=== PATIENT | female | born 1995 | race Caucasian/White ===

== ENCOUNTER 2018-09-04 18:10 | Emergency (ER) | payer MEDICAID ==
[~2018-09-04] VITALS: Ht 154.9 cm; Wt 51.0 kg
[2018-09-04] MEDS ORDERED: ibuprofen tablet 400 MG TABLET PO ONE (19:15)
[2018-09-04] MEDS ORDERED: acetaminophen 325mg tablet PO ONE (19:15)
[2018-09-04] MEDS ORDERED: IBUP-1984 PO (20:01)
[2018-09-04] MEDS ORDERED: AMOX-580 PO (20:01)
[2018-09-04] MEDS ORDERED: amox tr/potassium clavulanate 875/125mg TAB PO ONE (20:05)
[2018-09-04 20:08] VITALS: BP 127/82
== END 2018-09-04 20:16 | disposition home or self-care (01) ==
LOC: ER 18:10
DX: J32.0 Chronic maxillary sinusitis (principal); H66.91 Otitis media, unspecified, right ear
CPT/HCPCS: 99284

== ENCOUNTER 2021-12-29 18:44 | Emergency (ER) | payer MEDICAID ==
[~2021-12-29] VITALS: Ht 157.5 cm; Wt 54.5 kg
[2021-12-29] MEDS ORDERED: proCHLORperazine 10 MG/2 ml inj IV ONE (19:10)
[2021-12-29 19:26] LABS: URINE HCG NEGATIVE (NEG)
[2021-12-29 19:33] LABS: BASOPHILS # (AUTO) 0.1 X10'3 (0-0.2); BASOPHILS % (AUTO) 0.4 % (0-1); EOSINOPHILS # (AUTO) 0.1 X10'3 (0-0.9); HEMATOCRIT 34.6 % (35.0-45.0); HEMOGLOBIN 10.9 g/dl (12.0-16.0); LYMPHOCYTES # (AUTO) 4.2 X10'3 (1.1-4.8); MEAN CORPUSCULAR HEMOGLOBIN 19.2 PG (27.0-31.0); MEAN CORPUSCULAR HGB CONC 31.4 g/dL (33.0-36.5); MEAN CORPUSCULAR VOLUME 61.3 FL (78-98); MEAN PLATELET VOLUME 9.5 FL (7.4-10.4); MONOCYTES # (AUTO) 0.8 X10'3 (0-0.9); MONOCYTES % (AUTO) 6.4 % (2-12); NEUTROPHILS # (AUTO) 7.9 X10'3 (1.8-7.7); NEUTROPHILS % (AUTO) 60.2 % (42-75); PLATELET COUNT 259 X10'3 (140-440); RED BLOOD COUNT 5.65 X10'6 (4.20-5.60); RED CELL DISTRIBUTION WIDTH 18.7 % (11.5-14.5); WHITE BLOOD COUNT 13.2 X10'3 (4.5-11.0)
[2021-12-29 19:39] LABS: ALANINE AMINOTRANSFERASE 18 U/L (12-78); ALBUMIN 3.9 G/DL (3.4-5.0); ALBUMIN/GLOBULIN RATIO 1.1 (1.1-1.5); ALKALINE PHOSPHATASE 82 IU/L (46-116); ANION GAP 9 (8-16); ASPARTATE AMINO TRANSFERASE 14 U/L (10-37); BILIRUBIN,TOTAL 0.4 MG/DL (0.1-1.0); BLOOD UREA NITROGEN 14 MG/DL (7-18); BUN/CREATININE RATIO 17.1 (6.6-38.0); CALCIUM 7.9 MG/DL (8.5-10.1); CHLORIDE 108 MMOL/L (99-107); CREATININE 0.82 MG/DL (0.40-0.90); GLUCOSE 74 MG/DL (70-104); POTASSIUM 3.2 MMOL/L (3.5-5.1); SODIUM 139 MMOL/L (135-145); TOTAL CARBON DIOXIDE 22.1 MMOL/L (24-32); TOTAL PROTEIN 7.3 G/DL (6.4-8.2); eGFR 83 ML/MIN
[2021-12-29 19:39] LABS: URINE AMPHETAMINE SCREEN NEGATIVE (Neg); URINE BARBITUATE SCREEN NEGATIVE (Neg); URINE BENZODIAZEPINES SCREEN NEGATIVE (Neg); URINE CANNABINOID SCREEN NEGATIVE (Neg); URINE COCAINE SCREEN NEGATIVE (Neg); URINE METHADONE SCREEN NEGATIVE (Neg); URINE OPIATE SCREEN NEGATIVE (Neg); URINE PHENCYCLIDINE SCREEN NEGATIVE (Neg)
--- NOTE | 2021-12-29 19:39 | NUR ---
Per Poison control: Pt will need 6-8 hrs observation, monitoring for increased sedation, tachycardia with concern if HR [id number]
[2021-12-29] MEDS ORDERED: charcoal, activated 50 GM/240 ML bottle PO ONE (19:40)
[2021-12-29 19:47] LABS: CLARITY,URINE CLEAR (Clear); COLOR,URINE YELLOW (Yellow); GLUCOSE, URINE NEGATIVE (Neg); KETONES,URINE NEGATIVE (Neg); LEUKOCYTE ESTERASE ,URINE NEGATIVE (Neg); NITRITES, URINE NEGATIVE (Neg); OCCULT BLOOD,URINE NEGATIVE (Neg); PROTEIN,URINE NEGATIVE (Neg); UROBILINOGEN,URINE 0.2 E.U/dL (0.2-1.0)
[2021-12-29 19:48] LABS: ETHANOL 0.151 GM/DL (0.0-0.010)
[2021-12-29 19:50] LABS: UA COLLECTION TYPE CLN CATCH MIDSTREAM
--- NOTE | 2021-12-29 19:55 | NUR ---
continue with Poison control recommendations. Monitor for QT prolongation, if QT >550 enhance electrolytes to levels of K >4, Mg>2, and Ca>9. Ativan can be used for seizures and agitation. Acetominophen, and Salicylates levels should be tested for as well as a test.
[2021-12-29 20:01] LABS: ACETAMINOPHEN < 2.0 UG/ML (10-30)
[2021-12-29 20:16] LABS: ANISOCYTOSIS 2+; MICROCYTOSIS 2+; PLATELET ESTIMATE NORMAL
[2021-12-29 20:17] LABS: ELLIPTOCYTES 1+; TARGET CELLS 1+
[2021-12-29] MEDS ORDERED: potassium Cl 20 mEq SR tablet PO STA (22:24)
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
--- NOTE | 2021-12-30 02:04 | NUR ---
Pt appears to be sleeping.
--- NOTE | 2021-12-30 03:27 | NUR ---
Pt's IV has been D/C'd.
--- NOTE | 2021-12-30 05:04 | NUR ---
Pt up to the bathroom, back to bed resting.
[2021-12-30 05:07] VITALS: BP 113/70
--- NOTE | 2021-12-30 06:22 | NUR ---
Patient adjusting her position. No distress observed. Continue to monitor.
--- NOTE | 2021-12-30 08:11 | NUR ---
Patient sleeping. No distress observed. Continue to monitor.
--- NOTE | 2021-12-30 09:23 | NUR ---
Patient just drank her coffee for breakfast and didn't eat. No distress observed. Continue to monitor.
--- NOTE | 2021-12-30 10:16 | NUR ---
Angela SALDAÑA, evaluating patient. No distress observed. Continue to monitor.
== END 2021-12-30 13:28 | disposition home or self-care (01) ==
LOC: ER 18:45
DX: R45.851 Suicidal ideations (principal); Z20.822 Contact with and (suspected) exposure to COVID-19; R11.2 Nausea with vomiting, unspecified; T50.902A Poisoning by unspecified drugs, medicaments and biological substances, intentional self-harm, initial encounter; Y93.89 Activity, other specified
CPT/HCPCS: 36415; 80053; 80305; 80320; 80329; 81003; 81025; 84443; 85008; 85025; 87811; 93005; 96374; 99285; J0780

== ENCOUNTER 2024-08-25 15:50 | Emergency (ER) | payer MEDICAID ==
[~2024-08-25] VITALS: Ht 160 cm; Wt 63.3 kg
[2024-08-25] MEDS ORDERED: AMOX-117 PO (17:05)
[2024-08-25] MEDS: CefTRIAXone 1000mg IM Kit (w/lidocaine diluent) IM ONE (17:14)
[2024-08-25 17:23] VITALS: BP 128/64; PULSE 78; RESP 16; TEMP 98.3; O2SAT 98
== END 2024-08-25 17:25 | disposition home or self-care (01) ==
LOC: ER 15:51
DX: K04.7 Periapical abscess without sinus (principal)
CPT/HCPCS: 96372; 99283; J0696

== ENCOUNTER 2024-11-07 21:09 | Emergency (ER) | payer MEDICAID ==
[~2024-11-07] VITALS: Ht 157.5 cm; Wt 68.2 kg
[2024-11-07 21:13] VITALS: TEMP 98.1
--- NOTE | 2024-11-07 21:42 | Physician Documentation ---
History of Present Illness ~ Chief Complaint: Medical Clearance Stated Complaint: MED CLEARANCE Time Seen by MD: 21:26 OK to notify your PCP?: Yes Source: patient Mode of Arrival: POV Exam Limitations: no limitations HPI 28-year-old female brought in by our [employer] for medical clearance for the usp. At the usp she took a test and was positive. 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 She is , with 3 abortions. She has not had any care. Tetanus within 5 years?: Yes Medication Reconciliation Allergies: Coded Allergies: No Known Allergies (Unverified , 08/25/24) Past Medical History Past Medical History: No Pertinent History Past Surgical History: noncontributory Last Menstrual Period: Jul 11, 2024 Drug Use: none Lives with: Family Lives In: Home Physical Exam Vital Signs: Temperature: 98.1, Source: Oral, Heart Rate: 83, Respiratory Rate: 16, BP: 98/72, Pulse Oximetry: 100, Weight: 68.180 Oxygen Flow Rate: 0 Progress Results/Orders Reviewed/noted all lab results: Yes Results/Orders Orders - LEXIE VIDALES Abo/Rh (11/07/24 21:28) US OB (11/07/24 21:28) Us Ob Ltd (11/07/24 ) Cult Urine + [place] [address] (11/07/24 22:35) Completed Orders - LEXIE VIDALES Hcg Serum Qt (11/07/24 21:28) Cbc/Diff (11/07/24 21:28) CMP (11/07/24 21:28) Ua W/Microscopic, Cult If Ind (11/07/24 21:55) Vital Signs 11/07/24 11/07/24 11/07/24 21:13 22:00 23:00 Temp 98.1 Pulse 83 70 69 Resp 16 16 16 B/P (MAP) 98/72 110/64 (79) 110/64 (79) Pulse Ox 100 96 97 O2 Flow Rate 0 Laboratory Tests Test 11/07/24 21:55 11/07/24 22:07 Urine Specimen Description Non-specified Urine Color Yellow Urine Clarity Cloudy Urine pH 6.0 Urine Specific Ivins >=1.030 Urine Protein 30 H Urine Glucose (UA) Negative Urine Ketones >=80 Urine Occult Blood Negative Urine Nitrite Positive H Urine Bilirubin Small Urine Urobilinogen 2.0 H Urine Leukocyte Esterase Trace H Urine RBC 0-2 Urine WBC 20-30 H Urine Squamous Epithelial Cells Few Urine Bacteria 4+ Urine Culture Indicated Indicated Volume Urine Centrifuged 10 ml Urine Comment White Blood Count 8.7 Red Blood Count 5.26 Hemoglobin 9.6 L Hematocrit 30.7 L Mean Corpuscular Volume 58.3 L Mean Corpuscular Hemoglobin 18.3 L Mean Corpuscular Hemoglobin Concent 31.4 L Red Cell Distribution Width 18.0 H Platelet Count 196 Mean Platelet Volume 9.0 Neutrophils (%) (Auto) 75.5 H Lymphocytes (%) (Auto) 19.1 L Monocytes (%) (Auto) 4.5 Eosinophils (%) (Auto) 0.5 Basophils (%) (Auto) 0.4 Neutrophils # (Auto) 6.5 Lymphocytes # (Auto) 1.7 Monocytes # (Auto) 0.4 Eosinophils # (Auto) 0.0 Basophils # (Auto) 0.0 CBC Comment Platelet Estimate Normal Red Blood Cell Morphology Perf Basophilic Stippling Anisocytosis 1+ Microcytosis 2+ Sodium Level 138 Potassium Level 3.7 Chloride Level 105 Carbon Dioxide Level 24.0 Anion Gap 9 Blood Urea Nitrogen 7 Creatinine 0.61 Estimated GFR/1.73 m2 > 90 BUN/Creatinine Ratio 11.5 Glucose Level 69 L Calcium Level 8.8 Total Bilirubin 0.7 Aspartate Amino Transf (AST/SGOT) 9 L Alanine Aminotransferase (ALT/SGPT) 12 Alkaline Phosphatase 64 Total Protein 7.3 Albumin 3.4 Globulin 3.9 Albumin/Globulin Ratio 0.9 L HCG Beta Subunit [id number] Chemistry Comments Microbiology Date/Time Source Procedure Growth Status 11/07/24 22:35 Urine Nonspecified Urine Culture - Preliminary Culture received. Resulted EKG/XRAY/CT/US/VASC/MRI Ultrasound : Impression Bedside ultrasound performed in the ED by Dr. Sagastume and interpreted by Dr. Sagastume and myself. Shows positive movement and a regular heart rate of 162 beats per minute. Medical Decision Making Additional info obtained from: old records Findings Sayra is a 28-year-old female with no care who is and brought in by our PD for medical clearance for usp. Dr. Sagastume did a bedside ultrasound with positive movement and heart rate 162. CBC, CMP, ABO Rh, urinalysis and beta quant all ordered. Notified by RN that patient was released from custody by [employer] and ambulated out of ambulance [employer] [facility] to [facility]. She has decision-making capacity. Partial lab results have resulted, type still pending. Urinalysis shows that she has a urinary tract infection. I was unable to relay this to the patient prior to her eloping and was unable to order any medications to her pharmacy of choice as it is not known at this time. I filled out an action form for tomorrow the day shift charge nurse can contact the patient, find out her preferred pharmacy and I wrote a written order for Macrobid 100 mg twice daily for 10 days for her UTI. Departure Disposition: 07 LEFT AWOL/ELOPED Impression: Primary Impression: Additional Impression: UTI (urinary tract infection) during Referrals: NO PRIMARY CARE PROVIDER (PCP) Signature Scribe Signature: . Attestation: Scribed for Lexie Vidalesp by Lexie Jeffers NP . 11/08/24 00:08 LEXIE VIDALES November 07, 2024 21:42
[2024-11-07 22:25] LABS: BASOPHILS % (AUTO) 0.4 % (0-1); EOSINOPHILS % (AUTO) 0.5 % (0-6); HEMATOCRIT 30.7 % (35.0-45.0); HEMOGLOBIN 9.6 g/dl (12.0-16.0); LYMPHOCYTES # (AUTO) 1.7 X10'3 (1.1-4.8); LYMPHOCYTES % (AUTO) 19.1 % (21-51); MEAN CORPUSCULAR HEMOGLOBIN 18.3 PG (27.0-31.0); MEAN CORPUSCULAR HGB CONC 31.4 g/dL (33.0-36.5); MEAN CORPUSCULAR VOLUME 58.3 FL (78-98); MONOCYTES # (AUTO) 0.4 X10'3 (0-0.9); MONOCYTES % (AUTO) 4.5 % (2-12); NEUTROPHILS # (AUTO) 6.5 X10'3 (1.8-7.7); NEUTROPHILS % (AUTO) 75.5 % (42-75); PLATELET COUNT 196 X10'3 (140-440); RED BLOOD COUNT 5.26 X10'6 (4.20-5.60); WHITE BLOOD COUNT 8.7 X10'3 (4.5-11.0)
[2024-11-07 22:34] LABS: BILIRUBIN,URINE SMALL (Neg); CLARITY,URINE CLOUDY (Clear); COLOR,URINE YELLOW (Yellow); GLUCOSE, URINE NEGATIVE (Neg); KETONES,URINE >=80 mg/dl (Neg); LEUKOCYTE ESTERASE ,URINE TRACE (Neg); NITRITES, URINE POSITIVE (Neg); OCCULT BLOOD,URINE NEGATIVE (Neg); PROTEIN,URINE 30 mg/dl (Neg)
[2024-11-07 22:35] LABS: UA COLLECTION TYPE NON-SPECIFIED
[2024-11-07 22:38] LABS: ALANINE AMINOTRANSFERASE 12 U/L (12-78); ALBUMIN 3.4 G/DL (3.4-5.0); ALBUMIN/GLOBULIN RATIO 0.9 (1.1-1.5); ALKALINE PHOSPHATASE 64 IU/L (46-116); ANION GAP 9 (8-16); ASPARTATE AMINO TRANSFERASE 9 U/L (10-37); BILIRUBIN,TOTAL 0.7 MG/DL (0.1-1.0); BLOOD UREA NITROGEN 7 MG/DL (7-18); BUN/CREATININE RATIO 11.5 (10.0-20.0); CALCIUM 8.8 MG/DL (8.5-10.1); CHLORIDE 105 MMOL/L (99-107); CREATININE 0.61 MG/DL (0.40-0.90); GLUCOSE 69 MG/DL (70-104); POTASSIUM 3.7 MMOL/L (3.5-5.1); SODIUM 138 MMOL/L (135-145); TOTAL PROTEIN 7.3 G/DL (6.4-8.2); eCRCL 107 ML/MIN; eGFR > 90 ML/MIN
[2024-11-07 22:58] LABS: RBC,URINE 0-2 /HPF (0-2); WBC,URINE 20-30 /HPF (0-4)
[2024-11-07 22:59] LABS: BACTERIA,URINE 4+ /HPF (Neg); SQUAMOUS EPITHELIAL CELL,UR FEW /LPF (FEW)
[2024-11-07 23:00] VITALS: BP 110/64; PULSE 69; RESP 16; O2SAT 97
[2024-11-07 23:05] LABS: BETA HCG,QUANTITATIVE 27002 mIU/ml
[2024-11-07 23:16] LABS: ANISOCYTOSIS 1+; MICROCYTOSIS 2+; PLATELET ESTIMATE NORMAL
== END 2024-11-07 23:30 | disposition left against medical advice (07) ==
LOC: ER 21:10
DX: O23.42 Unspecified infection of urinary tract in pregnancy, second trimester (principal); N39.0 Urinary tract infection, site not specified; Z3A.17 17 weeks gestation of pregnancy
CPT/HCPCS: 36415; 80053; 81001; 84702; 85008; 85025; 86900; 86901; 87077; 87088; 87186; 99283